=== PATIENT | male | born 1955 | race Caucasian/White ===

== ENCOUNTER 2016-07-10 11:01 | Emergency (ER) | payer OTHER ==
[~2016-07-10] VITALS: Ht 180.3 cm; Wt 90.9 kg
[2016-07-10 11:10] VITALS: BP 127/82; PULSE 94; RESP 16; O2SAT 96
--- NOTE | 2016-07-10 11:40 | ED.REPORT ---
HPI-Dyspnea / Wheezing Date of Service July 10, 2016 ED Provider: Maylin Galan MD Patient is a 61 year old male with a history of idiopathic pulmonary fibrosis and pulmonary embolism who presents to the ED complaining of shortness of breath onset two days ago. Associated symptoms include palpitations, headache and dyspnea on exertion. He denies cough, fever, nausea, vomiting, diarrhea, chest pain, myalgia, or abdominal pain. The patient reports that he is currently on Warfarin and has been having to use his oxygen more often after exertion since onset. Nursing Notes Stated Complaint: SHORTNESS BREATH/IRREGULAR HEART RATE Chief Complaint: Respiratory Complaints Nursing Notes Reviewed: Yes Allergies: Coded Allergies: No Known Allergies (Unverified , 07/10/16) Scheduled Atorvastatin (Lipitor) 20 Mg Tablet 20 MG PO DAILY Nintedanib Esylate (Ofev) 150 Mg Capsule 150 MG PO BID Warfarin Sodium (Warfarin Sodium) 2 Mg Tablet 2 MG PO DAILY Miscellaneous Medications Cholecalciferol (Vitamin D3) (Vitamin D3) 2,000 Unit Capsule 2,000 UNIT PO General Time Seen by MD: 11:39 Chief Complaint Shortness of breath Hx Obtained From: Patient Arrived By: Walk-in Onset Occurred: 2 days ago Symptom Duration: Since onset Location: : None Radiation: : Does not radiate Severity: Current: No pain currently Associated with: Denies: Chest pain, Nausea, Vomiting Recent Healthcare: No recent doctor visit, No recent hospitalization Similar Sx Previous: Yes Past Medical History Past Medical History Notes: Pond Supervisor: Dr. Reddy Ayala He is also followed by Dr. Adler and Dr. Duncan from [facility] Past Medical History Idiopathic pulmonary fibrosis Pulmonary embolism Family History Noncontributory Smoking History Former Smoker Social History Alcohol Use: 1-3 per day Drug Use: Denies drug use Other Social History: Good social support, , Local resident Ambulatory Status Independent Review of Systems Constitutional: Denies: Fever Respiratory: Reports: Shortness of breath, Denies: Non-productive cough Cardiovascular: Reports: Dyspnea on exertion, Palpitations, Denies: Chest pain Complete sys rev & neg: except as marked. GI: Denies: Abdominal pain, Diarrhea, Nausea, Vomiting Neurologic: Reports: Headache Physical Exam Initial Vital Signs Vital Signs (First) Date Time Temp Pulse Resp B/P Pulse Ox O2 Delivery O2 Flow Rate FiO2 07/10/16 11:10 36.3 94 16 127/82 96 Nasal Cannula 4 Initial VS: Reviewed, Vital signs normal General/Constitutional: Awake, Alert, No acute distress Neck: Atraumatic, Full range of motion RESPIRATORY: scattered rales Cardiovascular: Heart rate NL, Regular rhythm, Heart sounds NL Abdomen: Atraumatic, Soft, Non-tender Lower Extremity / Pelvis / MS: Atraumatic, Full range of motion Skin: Atraumatic, Color NL, No rash, Warm, Dry Neurologic: Oriented X3, Speech NL, No motor deficits, No sensory deficits Head / Eyes: Atraumatic, Normocephalic, PERRL, EOMI Upper Extremity / MS: Atraumatic, Full range of motion Psychiatric: Affect NL, Mood NL Interpretation & Diagnostics Lab Results Interpretation Result Diagram: 07/10/16 1130 07/10/16 1130 Test 07/10/16 11:30 07/10/16 11:56 07/10/16 12:20 White Blood Count 7.1th/mm3 (3.8-10.1) Red Blood Count 4.92mil/mm3 (4.40-5.80) Hemoglobin 16.0g/dL (13.8-17.2) Hematocrit 48.1% (41.0-50.0) Mean Corpuscular Volume 97.8fL (81-100) Mean Corpuscular Hemoglobin 32.5pg (27.0-35.0) Mean Corpuscular Hemoglobin Concent 33.3% (32.0-37.0) Red Cell Distribution Width 13.0% (12.3-15.4) Platelet Count 234bil/L (150-400) Neutrophils (%) (Auto) 61.2% (40-74) Lymphocytes (%) (Auto) 22.0% (14-46) Monocytes (%) (Auto) 9.9% (4-12) Eosinophils (%) (Auto) 6.1% (0-5) Basophils (%) (Auto) 0.7% (0-3) Sodium Level 138mEq/L (134-144) Potassium Level 4.2mEq/L (3.5-5.2) Chloride Level 99mEq/L (97-108) Carbon Dioxide Level 22mmol/L (18-29) Blood Urea Nitrogen 11mg/dL (6-24) Creatinine 0.60mg/dL (0.76-1.27) Estimat Glomerular Filtration Rate 147mL/min (>59) Glucose Level 114mg/dL (60-99) Calcium Level 9.4mg/dL (8.5-10.1) Magnesium Level 2.1mg/dL (1.6-2.6) Troponin T < 0.010ug/L (0.0-0.011) Hold Burrell Top Tube Received (Received) Prothrombin Time 24.6sec (8.1-12.5) Prothromb Time International Ratio 2.26ratio ECG Interpretation ECG Interpretation: normal intervals T-wave T1 and T2 non specific ST changes Time: 12:04 Interpreted by: ED physician Normal ECG Interpretation: Normal rate (81), Normal sinus rhythm X-Ray Chest Interpretation Chest Xray Interpretation: IMPRESSION: Severe, widespread bilateral interstitial changes and scarring, grossly stable since 12/04/15. No acute disease Dictated by: Toby Simpson M.D. on 07/10/2016 at 12:35 Approved by: Toby Simpson M.D. on 07/10/2016 at 12:36 View: Portable, 1 view Interpretation / Wet Read by: Interpret - Radiologist CT Chest Interpretation IMPRESSION: 1. No evidence for central pulmonary embolism. 2. 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 3. No significant interval change in multiple enlarged mediastinal and hilar lymph nodes, a nonspecific finding of uncertain etiology. 4. Small retrocardiac hiatal hernia. 5. Mild cardiomegaly is unchanged. Dictated by: Pete Wright M.D. on 07/10/2016 at 13:28 Approved by: Pete Wright M.D. on 07/10/2016 at 13:37 Study type: CT pulm angiogram Interpretation / Wet Read by: Interpret - Radiologist Re-Eval/Medical Decision Med Decision/Clinical Course The patient presents with increasing dyspnea on exertion. He was concerned he may have a pulmonary embolus. He is therapeutic on his warfarin and his CT is negative. I spoke with his branch services manager at [facility], Dr. Duncan, he will evaluate him further with an echocardiogram. He did not recommend any medication changes. Dr. Duncan is concerned he may be developing pulmonary hypertension. Partial differential diagnoses considered were acute coronary syndrome, pulmonary embolus, pneumonia, and congestive heart failure. Re-Evaluation/Progress : Time of Eval: 14:21 Re-Evaluation/Progress Note: Discussed plan for discharge. The patient understands and agrees to the plan for discharge. All questions were addressed Consultation : Consulted With: Pond Supervisor Call Returned at: 14:14 Furniture Upholstery Mechanic: Will see patient, Agrees with plan Note: Consult with Dr. Duncan, branch services manager, who recommends the patient follow up with him for further testing. He recommends a road test with oxygen before discharging. Counseled Regarding: Diagnosis, Lab results, Need for follow-up, When/why to return to ED Discharge & Departure Impression: Primary Impression: Pulmonary fibrosis Additional Impression: Hypoxia Disposition: Home Discharge Condition All VS Reviewed: Yes Condition: Stable Additional Instructions: Your CT showed no evidence of a PE. You need to start using your oxygen all the time until you follow up with Dr. Duncan. We spoke to Dr. Duncan, who wants you to have a few tests done including an Echo. He will schedule those and call you next week. Follow up with him next week to continue testing. Return to the emergency department if you develop any new or worsening symptoms such as difficulty breathing, dizziness or chest pain. Referrals: Edgardo Curry MD (PCP) [place] Attestation Portions of this note were transcribed by Rose Casey. I, Dr. Galan personally performed the history, physical exam and medical decision-making; I reviewed and confirmed the accuracy of the information in the transcribed note. Signed by: Isidro Zapata, 07/10/16 and 1219 copies to: Edgardo Curry MD, Jena M MD July 10, 2016 11:39 Marcie Casey July 10, 2016 11:51
[2016-07-10 12:02] LABS: BASOPHILS % (AUTO) 0.7 % (0-3); EOSINOPHILS % (AUTO) 6.1 % (0-5); MONOCYTES % (AUTO) 9.9 % (4-12); Mean Corpuscular Hemoglobin 32.5 pg (27.0-35.0); Mean Corpuscular Volume 97.8 fL (81-100); NEUTROPHILS % (AUTO) 61.2 % (40-74); Platelet Count 234 bil/L (150-400)
[2016-07-10] MEDS ORDERED: ATOR20TA PO (12:05)
[2016-07-10] MEDS ORDERED: CHOL200047 PO (12:05)
[2016-07-10] MEDS ORDERED: WARF2TAB7 PO (12:05)
[2016-07-10] MEDS ORDERED: NINT150C PO (12:05)
[2016-07-10 12:23] LABS: Magnesium 2.1 mg/dL (1.6-2.6)
[2016-07-10 12:34] LABS: TROPONIN T < 0.010 ug/L (0.0-0.011)
--- NOTE | 2016-07-10 12:37 | DRSVH ---
PROCEDURE: X-RAY CHEST ONE VIEW, PORTABLE ([id number]) INDICATIONS: SHORTNESS OF BREATH TECHNIQUE: One view of the chest was acquired. COMPARISON: [facility], CR, XR CHEST 2VW, 12/04/2015, 12:54. FINDINGS: Surgical changes and devices: None. Lungs and pleura: No pleural effusions or pneumothorax. Diffuse, bilateral interstitial changes as b efore. No new consolidation. Mediastinum: Mediastinal contours appear normal. Heart size is normal. Bones and chest wall: No suspicious bony lesions. Overlying soft tissues appear unremarkable. IMPRESSION: Severe, widespread bilateral interstitial changes and scarring, grossly stable since 12/04/15. No acute disease Dictated by: Toby Simpson M.D. on 07/10/2016 at 12:35 Approved by: Toby Simpson M.D. on 07/10/2016 at 12:36
[2016-07-10 12:51] LABS: INR 2.26 ratio
--- NOTE | 2016-07-10 13:39 | DRSVH ---
PROCEDURE: CT ANGIO CHEST PULMONARY EMBOLISM ([id number]) INDICATIONS: 61-year-old male with increased shortness of breath and hypoxia, and history of pulmonar y embolism. TECHNIQUE: After the administration of intravenous contrast, 2 mm thick sections acquired from the pulmonary api severino to the posterior costophrenic angles. 3-dimensional maximum intensity projection (MIP) coronal a nd sagittal reformats were then acquired through the thorax. For radiation dose reduction, the follo wing was used: automated exposure control, adjustment of mA and/or kV according to patient size. COMPARISON: [facility], CT, CT ANGIO CHEST PE, 12/19/2015, 14:34. FINDINGS: Image quality: Excellent. Pulmonary arteries: Pulmonary arteries are normal in size, and demonstrate no intraluminal filling d efects to suggest central pulmonary embolism. Lungs and pleura: No acute airspace opacities. Extensive background reticular opacities with architec tural distortion and honeycombing do not appear significantly changed. No pleural effusions or pneum othorax. Central airways are patent and normal in caliber. Mediastinum: Mild cardiomegaly is unchanged, without pericardial effusion. Multiple enlarged mediasti nal and hilar lymph nodes are likewise unchanged. Thoracic aorta is normal in caliber. Esophagus is normal in caliber, with a small hiatal hernia. Bones and chest wall: No suspicious bony lesions. Ribs and thoracic spine appear intact throughout. Thyroid gland is normal in size. No axillary or supraclavicular adenopathy. Abdomen: Visualized upper abdominal solid organs appear normal in the early arterial phase of enhanc ement. IMPRESSION: 1. No evidence for central pulmonary embolism. 2. Changes of background chronic interstitial lung disease as before, with overall CT appearance cons istent with usual interstitial pneumonia (UIP) histopathology. 3. No significant interval change in multiple enlarged mediastinal and hilar lymph nodes, a nonspecif ic finding of uncertain etiology. 4. Small retrocardiac hiatal hernia. 5. Mild cardiomegaly is unchanged. Dictated by: Pete Wright M.D. on 07/10/2016 at 13:28 Approved by: Pete Wright M.D. on 07/10/2016 at 13:37
[2016-07-10 14:06] VITALS: BP 117/74; PULSE 70; RESP 24; O2SAT 97
[2016-07-10 14:40] VITALS: BP 117/74; PULSE 70; RESP 24; O2SAT 97
== END 2016-07-10 14:42 | disposition home or self-care (01) ==
LOC: SED 11:01
DX: J84.10 Pulmonary fibrosis, unspecified (principal); R09.02 Hypoxemia; Z87.891 Personal history of nicotine dependence; Z79.01 Long term (current) use of anticoagulants
CPT/HCPCS: 36415; 71010; 71275; 80048; 83735; 84484; 85025; 85610; 93005; 99285; Q9967